=== PATIENT | female | born 1945 | race Caucasian/White ===

== ENCOUNTER 2017-10-13 23:53 | Inpatient (IN) | payer OTHER ==
[~2017-10-13] VITALS: Ht 157.5 cm; Wt 94.0 kg
[~2017-10-13 23:53] MED LIST: ADVAIR 500/501 DISK IH; ANAPROX DS550 M1 PO; ASPIR 8181 M1 PO; CELECOXIB200 MG PO; CLARINEX5 MG PO; NORVASC10 MG PO; PROAIR HFA8.5 GM IH; PROTONIX20 MG PO; PROVENTIL,2.5 MG/3 M IH; SINGULAIR10 MG PO; SOTALOL80 MG PO; SPIRIVA1 INHALATI IH; TOPAMAX25 MG PO; TYLENOL WITH C1 EACH PO; ULTRAM50 MG PO; VESICARE10 MG PO; XARELTO20 MG PO; ZOLOFT50 MG PO
[2017-10-14] VITALS (9 sets, daily range): BP systolic 85–127; BP diastolic 50–76
[2017-10-14 00:22] LABS: BASOPHIL COUNT 0.1 K/uL (0-0.1); EOSINOPHIL (%) 1.4 % (0-5); EOSINOPHIL COUNT 0.2 K/uL (0-0.3); IMMATURE GRANULOCYTE (%) 0.4 % (0.0-0.7); INSTRUMENT ABS NEUTROPHIL CT 5.9 K/uL; LYMPHOCYTE COUNT 3.6 K/uL (1.0-2.8); MCH 29.6 PG (29.0-34.0); MCHC 32.4 G/DL (30.0-36.0); MCV 91.3 FL (83-99); MEAN PLAT.VOLUME 12.9 uM^3 (9.5-12.4); MONOCYTE COUNT 1.1 K/uL (0-0.8); NEUTROPHIL (%) 54.6 % (45-76); NEUTROPHIL COUNT 5.9 K/uL (1.8-6.4); PLATELET COUNT 200 K/uL (156-360); RBC DIS.WIDTH-CV 13.4 % (11.8-14.6); RBC DIS.WIDTH-SD 45.1 % (39-53); RED BLOOD COUNT 4.16 M/uL (3.80-5.20); WHITE BLOOD COUNT 10.8 K/uL (4.1-10.2)
[2017-10-14 00:28] LABS: INTER. NORMALIZED RATIO 1.1; PROTHROMBIN TIME 12.8 SEC (10.2-12.9)
[2017-10-14 00:30] LABS: CHLORIDE 110 mEq/L (99-109); POTASSIUM 3.7 mEq/L (3.7-5.4); PTT 32.6 SEC (25-37); SODIUM 141 mEq/L (136-147)
[2017-10-14 00:33] LABS: GLUCOSE 102 mg/dL (70-99)
[2017-10-14 00:34] LABS: ANION GAP 6 MEQ/L (2-14)
[2017-10-14 00:35] LABS: TOTAL BILIRUBIN 0.2 mg/dL (0.0-1.0)
[2017-10-14 00:36] LABS: ALKALINE PHOSPHATASE 69 IU/L (3-129); GFR ESTIMATE (CALCULATED) > 59 mL/min/
[2017-10-14 00:37] LABS: UREA NITROGEN (BUN) 18 mg/dL (9-23)
[2017-10-14 00:43] LABS: TROP-I INTERPRETATION NEGATIVE; TROPONIN-I < 0.01 ng/mL (0.0-0.30)
[2017-10-14] MEDS ORDERED: CLARINEX5 MG PO (11:57)
[2017-10-14] MEDS ORDERED: PROTONIX40 MG PO (11:57)
[2017-10-14] MEDS ORDERED: VITAMIN C1000 MG PO (11:58)
[2017-10-14] MEDS ORDERED: TYLENOL EXTRA500 MG PO (11:58)
[2017-10-14] MEDS ORDERED: LOPRESSOR25 MG PO (11:58)
[2017-10-14] MEDS ORDERED: FOSAMAX70 MG PO (11:58)
[2017-10-14] MEDS ORDERED: FLONASE16 G1 BOTH NARES (11:59)
[2017-10-14] MEDS ORDERED: ZINC50 M1 PO (11:59)
[2017-10-14] MEDS ORDERED: LOTRISONE15 GM TP (12:00)
[2017-10-14] MEDS ORDERED: BUSPAR10 MG PO (12:03)
[2017-10-15 04:00] VITALS: BP 122/59
[2017-10-15 05:33] LABS: HEMATOCRIT 34.5 % (36.0-46.0); MCH 29.1 PG (29.0-34.0); MCHC 31.6 G/DL (30.0-36.0); MCV 92.2 FL (83-99); MEAN PLAT.VOLUME 13.8 uM^3 (9.5-12.4); PLATELET COUNT 158 K/uL (156-360); RBC DIS.WIDTH-CV 13.6 % (11.8-14.6); RBC DIS.WIDTH-SD 46.3 % (39-53); RED BLOOD COUNT 3.74 M/uL (3.80-5.20); WHITE BLOOD COUNT 7.8 K/uL (4.1-10.2)
[2017-10-15 05:56] LABS: ANION GAP 7 MEQ/L (2-14); CHLORIDE 110 MEQ/L (99-109); GFR ESTIMATE (CALCULATED) > 59 mL/min/; GLUCOSE 84 mg/dL (70-99); POTASSIUM 4.4 MEQ/L (3.7-5.4); SAMPLE HEMOLYSIS CHECK 0; SAMPLE ICTERIC CHECK 0; SAMPLE LIPEMIA CHECK 0; SODIUM 142 MEQ/L (136-147); UREA NITROGEN (BUN) 23 mg/dL (9-23)
[2017-10-15 08:30] VITALS: BP 110/56
[2017-10-15 10:25] LABS: HEMATOCRIT 35.9 % (36.0-46.0); MCV 92.5 FL (83-99)
[2017-10-15 11:48] VITALS: BP 111/56
[2017-10-15] MEDS ORDERED: SOTALOL120 MG PO (12:13)
== END 2017-10-15 13:55 | disposition home or self-care (01) | DRG 310 ==
LOC: EME → EDBD 23:53 → EME 23:53 → EDOF 10-14 03:21 → 4EAST 10-14 03:21 → ENRESERV 10-14 03:23 → 4EAST 10-14 05:07 → ENPENDDIS 10-15 15:00
PROVIDERS: Emergency Medicine; Hospitalist; Internal Medicine
DX: I48.0 Paroxysmal atrial fibrillation (principal); G89.29 Other chronic pain; J30.2 Other seasonal allergic rhinitis; R07.89 Other chest pain; G43.909 Migraine, unspecified, not intractable, without status migrainosus; I10 Essential (primary) hypertension; J44.9 Chronic obstructive pulmonary disease, unspecified; K08.89 Other specified disorders of teeth and supporting structures; R56.9 Unspecified convulsions; K21.9 Gastro-esophageal reflux disease without esophagitis; M81.0 Age-related osteoporosis without current pathological fracture; F32.9 Major depressive disorder, single episode, unspecified; Z66 Do not resuscitate; M19.90 Unspecified osteoarthritis, unspecified site; E66.9 Obesity, unspecified; Z68.36 Body mass index [BMI] 36.0-36.9, adult; Z79.01 Long term (current) use of anticoagulants; Z82.3 Family history of stroke; Z82.49 Family history of ischemic heart disease and other diseases of the circulatory system; Z86.73 Personal history of transient ischemic attack (TIA), and cerebral infarction without residual deficits; Z87.891 Personal history of nicotine dependence; Z90.710 Acquired absence of both cervix and uterus
CPT/HCPCS: 71010; 80048; 80053; 82272; 83735; 84484; 85014; 85018; 85025; 85027; 85610; 85730; 93005; 94640; 94640 76; 99202; J7030; J7040; J7050